=== PATIENT | female | born 1940 | race Hispanic/Latino ===

== ENCOUNTER → 2017-09-14 | Outpatient (CLI) | payer MEDICARE ==
[~2017-09-14] MED LIST: ASPI-1197 PO; ATOR20TA65 PO; HYDR25TA PO; LISI40TA4 PO; NAPR-1192 PO
== END | disposition home or self-care (01) ==
LOC: RAH 13:38
PROVIDERS: ATTEND Internal Medicine
DX: R51 Headache (principal); I10 Essential (primary) hypertension; E78.00 Pure hypercholesterolemia, unspecified; Z87.828 Personal history of other (healed) physical injury and trauma
CPT/HCPCS: 70450

== ENCOUNTER 2018-12-12 12:37 | Inpatient (IN) | payer MEDICARE ==
[~2018-12-12] VITALS: Ht 152.4 cm; Wt 72.6 kg
[2018-12-12 13:55] LABS: BASOPHILS % (AUTO) 0.3 % (0.0-5.0); EOSINOPHILS % (AUTO) 0.8 % (0.0-8.0); LYMPHOCYTES % (AUTO) 30.2 % (21.0-51.0); MEAN CORPUSCULAR HEMOGLOBIN 33.2 pg (27.0-33.0); MEAN CORPUSCULAR HGB CONC 34.6 g/dL (32.0-36.0); MEAN CORPUSCULAR VOLUME 96.1 fL (79-99); MONOCYTES % (AUTO) 6.3 % (3.0-13.0); NEUTROPHILS % (AUTO) 62.4 % (40.0-77.0); PLATELET COUNT (AUTO) 264 K/uL (130-400); RED BLOOD CELL COUNT(AUTO) 3.85 MIL/uL (4.00-5.50); RED CELL DISTRIBUTION WIDTH 13.4 % (11.0-15.5); WHITE BLOOD COUNT (AUTO) 7.3 K/uL (4.8-10.8)
[2018-12-12 14:04] LABS: CREATININE 0.8 mg/dL (0.5-1.5); POTASSIUM 3.1 mmol/L (3.5-5.1)
[2018-12-12] MEDS ORDERED: IOHEXOL-350 75 ML VIAL IV ONE (14:04)
[2018-12-12 14:06] LABS: ALBUMIN 3.8 g/dL (3.5-5.0); BILIRUBIN,TOTAL 0.5 mg/dL (0.2-1.0); TOTAL PROTEIN, SERUM 7.3 g/dL (6.0-8.3)
[2018-12-12 14:08] LABS: INR 1.02 (0.85-1.15); PARTIAL THROMBOPLASTIN TIME 26.6 SEC (26.3-35.5); PROTHROMBIN TIME 10.7 SEC (9.6-11.6)
[2018-12-12] MEDS ORDERED: ASPIRIN 325 MG TABLET ONE (16:55)
[2018-12-12] MEDS ORDERED: ONDANSETRON HCL 4 MG/2 ML VIAL IV PRN (18:15)
[2018-12-12] MEDS ORDERED: LACTULOSE 20 GM/30 ML UDCUP PO PRN (18:15)
[2018-12-12] MEDS ORDERED: ACETAMINOPHEN 325 MG TAB PO PRN (18:15)
[2018-12-12] MEDS ORDERED: HYDROCODONE/ACETAMINOPHEN 5/325 MG TAB PO PRN (18:15)
[2018-12-12] MEDS ORDERED: HYDRALAZINE HCL 20 MG/ML VIAL ONE (21:57)
[2018-12-13 00:35] VITALS: BP 175/70
[2018-12-13 00:39] LABS: APPEARANCE,URINE Clear (CLEAR); BILIRUBIN,URINE Negative (NEGATIVE); COLOR,URINE Yellow (YELLOW); GLUCOSE, URINE (UA) Negative (NEGATIVE); KETONES,URINE Negative (NEGATIVE); LEUKOCYTE ESTERASE ,URINE Negative (NEGATIVE); NITRATE,URINE Positive (NEGATIVE); OCCULT BLOOD,URINE Negative (NEGATIVE); PROTEIN,URINE Negative (NEGATIVE)
[2018-12-13 00:55] LABS: AMPHET/METH SCREEN,URINE NEGATIVE (NEGATIVE); BARBITURATE SCREEN, URINE NEGATIVE (NEGATIVE); BENZODIAZEPINES SCREEN,URINE NEGATIVE (NEGATIVE); CANNABINOID SCREEN,URINE NEGATIVE (NEGATIVE); COCAINE SCREEN,URINE NEGATIVE (NEGATIVE); OPIATE SCREEN,URINE NEGATIVE (NEGATIVE); PHENCYCLIDINE SCREEN,URINE NEGATIVE (NEGATIVE)
[2018-12-13 01:01] LABS: BACTERIA,URINE Many /HPF (None Seen); RBC,URINE 0-1 /HPF (0-1); SQUAMOUS EPITHELIAL CELL,UR 0-2 /HPF (0-2)
[2018-12-13] MEDS ORDERED: MECL-111 PO (01:33)
[2018-12-13] MEDS ORDERED: MELA3TAB66 PO (01:33)
[2018-12-13] MEDS ORDERED: OMEP-50 PO (01:33)
[2018-12-13 04:00] VITALS: BP 131/71
[2018-12-13 04:29] LABS: BASOPHILS % (AUTO) 0.4 % (0.0-5.0); EOSINOPHILS % (AUTO) 1.9 % (0.0-8.0); HEMATOCRIT 36.7 % (36-48); LYMPHOCYTES % (AUTO) 35.6 % (21.0-51.0); MEAN CORPUSCULAR HEMOGLOBIN 33.2 pg (27.0-33.0); MEAN CORPUSCULAR HGB CONC 34.7 g/dL (32.0-36.0); MEAN CORPUSCULAR VOLUME 95.8 fL (79-99); MONOCYTES % (AUTO) 7.6 % (3.0-13.0); NEUTROPHILS % (AUTO) 54.5 % (40.0-77.0); PLATELET COUNT (AUTO) 233 K/uL (130-400); RED BLOOD CELL COUNT(AUTO) 3.83 MIL/uL (4.00-5.50); RED CELL DISTRIBUTION WIDTH 13.4 % (11.0-15.5)
[2018-12-13 04:49] LABS: CREATININE 0.8 mg/dL (0.5-1.5); POTASSIUM 3.1 mmol/L (3.5-5.1)
[2018-12-13 07:30] VITALS: BP 152/74
[2018-12-13] MEDS ORDERED: ASPIRIN 81MG TAB.CHEW PO SCH (09:00)
--- NOTE | 2018-12-13 10:00 | NUR ---
COGNITIVE-LINGUISTIC EVAL COMPLETED. PT AT BASELINE AT THIS TIME. Addendum: 12/14/18 at 0721 by REZA TUCKER, SPT ST Amended: Links added.
--- NOTE | 2018-12-13 10:15 | NUR ---
DYSPHAGIA EVAL COMPLETED. -S/S OF ASPIRATION. RECOMMEND REGULAR TEXTURE, THIN LIQUIDS; PILLS WHOLE WITH LIQUIDS. Addendum: 12/14/18 at 0725 by REZA TUCKER, [facility] Amended: Links added.
[2018-12-13] MEDS ORDERED: ASPIRIN 325 MG TABLET ONE (10:45)
[2018-12-13 11:00] VITALS: BP 185/86
[2018-12-13] MEDS: FAMOTIDINE 20MG TAB 20 MG TAB PO SCH (11:04)
[2018-12-13] MEDS: ENOXAPARIN SODIUM 30 MG/0.3 ML SQ SCH (11:06)
[2018-12-13] MEDS: ASPIRIN 325MG EC TAB 325 MG TABLET.DR PO SCH (11:08)
[2018-12-13] MEDS ORDERED: Melatonin 3 MG PO PRN (14:15)
[2018-12-13] MEDS ORDERED: HYDRALAZINE HCL 20 MG/ML VIAL IV PRN (14:30)
[2018-12-13 16:00] VITALS: BP 160/62
--- NOTE | 2018-12-13 16:00 | NUR ---
INITIAL MET W PATIENT AND DAUGHTER AT BEDSIDE- PT LIVES W SPOUSE, WHO IS FRAIL, DAUGHTER SPLIT PROVIDER SERVICE FOR PATIENT, HOME IS SAFE AND ACCESSIBLE, PT HAS NAVA SINGLETON, DCP IS HOME Addendum: 12/15/18 at 0941 by KAMERON CABAN RN Amended: Links added.
[2018-12-13] MEDS ORDERED: POTASSIUM CHLORIDE 20MEQ/100ML 100 ML IV PRN (19:00)
[2018-12-13] MEDS ORDERED: POTASSIUM CHLORIDE 20 MEQ ERTAB PO PRN (19:00)
[2018-12-13] MEDS ORDERED: LIDOCAINE HCL-MPF 1% 2ML VIAL IV PRN (19:00)
[2018-12-13] MEDS ORDERED: POTASSIUM CHLORIDE 20 MEQ ERTAB PO ONE (19:24)
[2018-12-13 20:00] VITALS: BP 167/74
[2018-12-13] MEDS: LISINOPRIL 40 MG TABLET PO SCH (20:12)
[2018-12-14] VITALS: BP 144/70
[2018-12-14] MEDS: POTASSIUM CHLORIDE 10% ELIXIR 20 MEQ/15 ML UDCUP PO PRN ×2 (00:41→04:08)
[2018-12-14 04:00] VITALS: BP 104/54
[2018-12-14 07:43] VITALS: BP 111/58
[2018-12-14] MEDS: ENOXAPARIN SODIUM 30 MG/0.3 ML SQ SCH (08:44)
[2018-12-14] MEDS: FAMOTIDINE 20MG TAB 20 MG TAB PO SCH (08:44)
[2018-12-14] MEDS: HYDROCHLOROTHIAZIDE 25 MG TABLET PO SCH (08:44)
[2018-12-14] MEDS: ASPIRIN 325MG EC TAB 325 MG TABLET.DR PO SCH (08:44)
[2018-12-14 11:00] VITALS: BP_SYST 127; BP_SYST 133; BP_DIAS 58; BP_DIAS 78
[2018-12-14 16:00] VITALS: BP 147/71
[2018-12-14 19:30] VITALS: BP 150/74
[2018-12-14] MEDS: LISINOPRIL 40 MG TABLET PO SCH (21:07)
[2018-12-15 00:20] VITALS: BP 137/61
[2018-12-15 03:35] VITALS: BP 141/66
[2018-12-15 07:30] VITALS: BP 188/79
[2018-12-15] MEDS: HYDROCHLOROTHIAZIDE 25 MG TABLET PO SCH (09:19)
[2018-12-15] MEDS: ASPIRIN 325MG EC TAB 325 MG TABLET.DR PO SCH (09:19)
[2018-12-15] MEDS: FAMOTIDINE 20MG TAB 20 MG TAB PO SCH (09:20)
[2018-12-15] MEDS: ENOXAPARIN SODIUM 30 MG/0.3 ML SQ SCH (09:20)
[2018-12-15 11:00] VITALS: BP 136/61
[2018-12-15] MEDS ORDERED: ATOR20TA65 PO (11:53)
[2018-12-15] MEDS ORDERED: ASPI-1197 PO (11:53)
== END 2018-12-15 15:40 | disposition home or self-care (01) | DRG 69 ==
LOC: EDH 12:37 → EDHIP 18:08 → 4CH 23:48
PROVIDERS: ADMIT Internal Medicine; ATTEND Internal Medicine
DX: G45.9 Transient cerebral ischemic attack, unspecified (principal); I69.354 Hemiplegia and hemiparesis following cerebral infarction affecting left non-dominant side; I10 Essential (primary) hypertension; E78.5 Hyperlipidemia, unspecified; I25.10 Atherosclerotic heart disease of native coronary artery without angina pectoris; E86.0 Dehydration; K59.00 Constipation, unspecified; Z82.49 Family history of ischemic heart disease and other diseases of the circulatory system; I08.0 Rheumatic disorders of both mitral and aortic valves; R26.2 Difficulty in walking, not elsewhere classified
CPT/HCPCS: 36415; 70450; 70496; 70498; 70551; 71045; 80048; 80053; 80305; 81001; 82550; 82948; 83721; 84132; 84484; 85025; 85610; 85730; 92522; 92610; 93005; 93306; 93880; 97039; G0378; J0360; J1650; J2405; Q9967

== ENCOUNTER → 2019-02-23 | Outpatient (CLI) | payer MEDICARE ==
[~2019-02-23] VITALS: Ht 157.5 cm; Wt 79.4 kg
[~2019-02-23] MED LIST changes: +MECL-111 PO; +MELA3TAB66 PO
[2019-02-23 08:30] VITALS: BP 215/84
[2019-02-23 09:39] LABS: APPEARANCE,URINE Clear (CLEAR); BASOPHILS % (AUTO) 0.6 % (0.0-5.0); BILIRUBIN,URINE Negative (NEGATIVE); COLOR,URINE Yellow (YELLOW); EOSINOPHILS % (AUTO) 1.8 % (0.0-8.0); GLUCOSE, URINE (UA) Negative (NEGATIVE); HEMATOCRIT 38.3 % (36-48); KETONES,URINE Negative (NEGATIVE); LEUKOCYTE ESTERASE ,URINE Trace (NEGATIVE); LYMPHOCYTES % (AUTO) 33.8 % (21.0-51.0); MEAN CORPUSCULAR HEMOGLOBIN 32.1 pg (27.0-33.0); MEAN CORPUSCULAR HGB CONC 33.4 g/dL (32.0-36.0); MONOCYTES % (AUTO) 7.4 % (3.0-13.0); NEUTROPHILS % (AUTO) 56.3 % (40.0-77.0); NITRATE,URINE Positive (NEGATIVE); OCCULT BLOOD,URINE Negative (NEGATIVE); PH,URINE 6.5 (5.0-8.0); PLATELET COUNT (AUTO) 250 K/uL (130-400); PROTEIN,URINE Negative (NEGATIVE); RED BLOOD CELL COUNT(AUTO) 3.99 MIL/uL (4.00-5.50); RED CELL DISTRIBUTION WIDTH 13.2 % (11.0-15.5); WHITE BLOOD COUNT (AUTO) 7.1 K/uL (4.8-10.8)
[2019-02-23 09:44] LABS: RBC,URINE 0-1 /HPF (0-1); WBC,URINE 0-1 /HPF (0-1)
[2019-02-23 09:45] LABS: BACTERIA,URINE Many /HPF (None Seen); SQUAMOUS EPITHELIAL CELL,UR Few /HPF (0-2)
[2019-02-23 09:52] LABS: CREATININE 0.9 mg/dL (0.5-1.5); POTASSIUM 3.5 mmol/L (3.5-5.1)
[2019-02-23 09:55] LABS: INR 1.02 (0.85-1.15); PARTIAL THROMBOPLASTIN TIME 27.6 SEC (26.3-35.5); PROTHROMBIN TIME 10.7 SEC (9.6-11.6)
[2019-02-23 11:30] VITALS: BP 165/84
== END ==
LOC: EDSTATUS 08:00 → DAH 10:00
PROVIDERS: ATTEND Internal Medicine Cardiovascular Disease
DX: Z01.818 Encounter for other preprocedural examination (principal); I25.10 Atherosclerotic heart disease of native coronary artery without angina pectoris; G45.9 Transient cerebral ischemic attack, unspecified
CPT/HCPCS: 36415; 71045; 80048; 81001; 85025; 85610; 85730; 93005

== ENCOUNTER 2019-04-07 07:37 | Observation (INO) | payer MEDICARE ==
[2019-04-05 13:01] LABS: BASOPHILS % (AUTO) 0.4 % (0.0-5.0); EOSINOPHILS % (AUTO) 1.7 % (0.0-8.0); HEMATOCRIT 39.8 % (36-48); LYMPHOCYTES % (AUTO) 32.7 % (21.0-51.0); MEAN CORPUSCULAR HEMOGLOBIN 30.9 pg (27.0-33.0); MEAN CORPUSCULAR HGB CONC 32.2 g/dL (32.0-36.0); MEAN CORPUSCULAR VOLUME 96.1 fL (79-99); MONOCYTES % (AUTO) 7.3 % (3.0-13.0); NEUTROPHILS % (AUTO) 57.6 % (40.0-77.0); PLATELET COUNT (AUTO) 258 K/uL (130-400); RED BLOOD CELL COUNT(AUTO) 4.14 MIL/uL (4.00-5.50); RED CELL DISTRIBUTION WIDTH 13.2 % (11.0-15.5); WHITE BLOOD COUNT (AUTO) 7.7 K/uL (4.8-10.8)
[2019-04-05 13:12] LABS: APPEARANCE,URINE Clear (CLEAR); BILIRUBIN,URINE Negative (NEGATIVE); COLOR,URINE Yellow (YELLOW); GLUCOSE, URINE (UA) Negative (NEGATIVE); KETONES,URINE Negative (NEGATIVE); LEUKOCYTE ESTERASE ,URINE Trace (NEGATIVE); NITRATE,URINE Negative (NEGATIVE); OCCULT BLOOD,URINE Negative (NEGATIVE); PH,URINE 5.5 (5.0-8.0); PROTEIN,URINE Negative (NEGATIVE); UROBILINOGEN,URINE 0.2 mg/dL (0.2-1.0)
[2019-04-05 13:21] LABS: INR 1.02 (0.85-1.15); PARTIAL THROMBOPLASTIN TIME 28.1 SEC (26.3-35.5); PROTHROMBIN TIME 10.7 SEC (9.6-11.6)
[2019-04-05 13:22] LABS: BACTERIA,URINE Few /HPF (None Seen); RBC,URINE 0-1 /HPF (0-1)
[2019-04-05 13:23] LABS: SQUAMOUS EPITHELIAL CELL,UR Few /HPF (0-2)
[2019-04-05 13:34] LABS: CREATININE 0.9 mg/dL (0.5-1.5); POTASSIUM 3.6 mmol/L (3.5-5.1)
[2019-04-05 14:17] VITALS: BP 190/80
[2019-04-07] VITALS (11 sets, daily range): BP systolic 110–172; BP diastolic 43–72
[~2019-04-07] VITALS: Ht 157.5 cm; Wt 78.5 kg
[~2019-04-07 07:37] MED LIST changes: +AEC81 PO; -ASPI-1197 PO; -ATOR20TA65 PO; -MECL-111 PO; +MECL-160 PO; -MELA3TAB66 PO
--- NOTE | 2019-04-07 07:45 | NUR ---
PATIENT ARRIVED TO DAY PATIENT ACCOMPANIED BY DAUGHTER (KEATON). PATIENT AAOX3, RESPIRATIONS UNLABORED, VITAL SIGNS STABLE, DENIES ANY PAIN AT THIS TIME. PROCEDURE VERIFIED WITH PATIENT AND DAUGHTER, HOSPITAL ROUTINE EXPLAINED. BOTH PATIENT AND DAUGHTER VERBALIZED UNDERSTANDING.
[2019-04-07] MEDS ORDERED: ATOR20TA65 PO (08:59)
[2019-04-07] MEDS ORDERED: SODIUM CHLORIDE 0.9% 1000ML 1,000 ML IV ONE (10:33)
--- NOTE | 2019-04-07 11:00 | NUR ---
PATIENT TRANSFERRED TO STRIP CUTTER VIA BED BY JEF BOOTHE. PATIENT FAMILY MEMBERS WAITING IN ROOM.
[2019-04-07] MEDS ORDERED: LIDOCAINE HCL 2% VISCOUS 15 ML UDCUP ONE (11:21)
[2019-04-07] MEDS ORDERED: FENTANYL CITRATE PF 50 MCG/1 ML 2ML VIAL ONE (11:57)
[2019-04-07] MEDS ORDERED: ADENOSINE 90MG/30ML VIAL IV ONE (12:21)
[2019-04-07] MEDS ORDERED: IOHEXOL-350 50ML VIAL IV ONE ×2 (12:48→13:19)
[2019-04-07] MEDS ORDERED: LIDOCAINE HCL 2% 20ML ONE ×2 (13:06→13:19)
[2019-04-07] MEDS ORDERED: BUPIVACAINE/PF 0.25% 30ML VIAL IJ ONE (13:17)
[2019-04-07] MEDS ORDERED: IOHEXOL 350 MG/ML 100ML INFUS..BTL IV ONE (13:19)
[2019-04-07] MEDS ORDERED: HEPARIN SODIUM 1000UNIT/ML 10ML VIAL ONE (13:19)
[2019-04-07] MEDS ORDERED: SODIUM BICARB 50MEQ 50ML VIAL ONE (13:19)
[2019-04-07] MEDS ORDERED: HYDRALAZINE HCL 20 MG/ML VIAL ONE (13:25)
[2019-04-07] MEDS ORDERED: LABETALOL HCL 5 MG/ML 20ML VIAL IV ONE (13:34)
[2019-04-07] MEDS ORDERED: CEFAZOLIN SODIUM 1 GM VIAL ONE ×2 (13:38→13:42)
[2019-04-07] MEDS ORDERED: LIDOCAINE HCL 1% MDV 50ML VIAL ONE (13:41)
[2019-04-07] MEDS ORDERED: CLOPIDOGREL BISULFATE 300 MG TAB ONE (13:53)
[2019-04-07] MEDS ORDERED: ASPIRIN 81MG TAB.CHEW ONE (13:53)
[2019-04-07] MEDS ORDERED: NOREPINEPHRINE BITARTRATE 1 MG/1 ML ML IV ONE (13:57)
[2019-04-07] MEDS ORDERED: ACETAMINOPHEN-CODEINE 300/30MG TAB PO PRN (14:15)
[2019-04-07] MEDS ORDERED: MECLIZINE HCL 25 MG TABLET PO PRN (14:15)
[2019-04-07 14:30] LABS: HEMATOCRIT 35.1 % (36-48)
--- NOTE | 2019-04-07 14:50 | NUR ---
PATIENT RETURNED TO COLD ROLLING MACHINE SETTER VIA BED BY JEF TAVARES. PATIENT AAOX3, RESPIRATIONS UNLABORED, VITAL SIGNS STABLE. PRESSURE DRESSING TO RIGHT GROIN IS DRY/INTACT. BRUISING NOTED TO LEFT PUBIC AREA. AREA IS SOFT/NONTENDER. DRESSING TO LEFT UPPER CHEST WALL IS DRY/INTACT. AREA IS SOFT AND NONTENDER. PATIENT DENIES ANY PAIN AT THIS TIME. PATIENT FAMILY AT BEDSIDE.
--- NOTE | 2019-04-07 15:15 | NUR ---
REPORT GIVEN TO SUSHANT LEUNG RN USING SBAR AT BEDSIDE. DRESSING TO LEFT UPPER CHEST WALL IS DRY/INTACT. NO HEMATOMA OR TENDERNESS. PRESSURE DRESSING TO RIGHT GROIN IS DRY/INTACT, AREA SOFT/NONTENDER. BRUISING NOTED TO PUBIC AREA.
--- NOTE | 2019-04-07 15:45 | NUR ---
REPORT CALLED TO JEF ANTUNEZ. REPORT GIVEN USING SBAR, ALL QUESTIONS AND CONCERNS ADDRESSED. PATIENT TRANSPORTED TO ROOM 203 BY JEF CAPUTO.
--- NOTE | 2019-04-07 16:15 | NUR ---
STATUS PT RECEIVED FORM DAYPT VIA BED, S/P WILL, LHC W/STENT, & LOOP RECORDER DEVICE. LT LOWER CHEST DSG FOR LOOP RECORDER, DRY & INTACT. NO DRAINAGE, NO BLEEDING NOTED. LHC W/STENT, RT GROIN DSTAT & PRESSURE DSG. BRUISING TO GROIN PRESENT. (+) STRONG BILATERAL PEDAL PULSES. BLE PINK & WARM TO TOUCH. PT REMINDED TO MAINTAIN BEDREST X 8 HRS. DENIES INCISIONAL PAIN. A/O X 3. SPA SPEAKING. NO SOB. NO DISTRESS NOTED. O2 NC @ 2L. 0.9% NACL INFUSING @ 100 ML/HR. FAMILY @ BEDSIDE. ORIENTED TO RM. INSTRUCTED TO CALL FOR ASSISTANCE. CALL JEMMA W/IN REACH.
[2019-04-07] MEDS ORDERED: HYDRALAZINE HCL 20 MG/ML VIAL IV PRN (18:15)
[2019-04-07] MEDS ORDERED: ATORVASTATIN CALCIUM 20 MG TABLET PO SCH (21:00)
[2019-04-07] MEDS ORDERED: LISINOPRIL 40 MG TABLET PO SCH (21:00)
[2019-04-08 03:00] VITALS: BP 149/55
[2019-04-08 04:26] LABS: HEMATOCRIT 33.5 % (36-48); MEAN CORPUSCULAR HEMOGLOBIN 31.8 pg (27.0-33.0); MEAN CORPUSCULAR HGB CONC 33.7 g/dL (32.0-36.0); MEAN CORPUSCULAR VOLUME 94.4 fL (79-99); PLATELET COUNT (AUTO) 218 K/uL (130-400); RED BLOOD CELL COUNT(AUTO) 3.55 MIL/uL (4.00-5.50); RED CELL DISTRIBUTION WIDTH 13.4 % (11.0-15.5); WHITE BLOOD COUNT (AUTO) 9.5 K/uL (4.8-10.8)
[2019-04-08 04:41] LABS: CREATININE 0.8 mg/dL (0.5-1.5); POTASSIUM 3.2 mmol/L (3.5-5.1)
--- NOTE | 2019-04-08 06:28 | NUR ---
hospitalist paged for k level md educational audiologist paged for k level, awaiting call back
--- NOTE | 2019-04-08 06:44 | NUR ---
page returned hypokalemia protocol ordered
[2019-04-08] MEDS ORDERED: POTASSIUM CHLORIDE 20MEQ/100ML 100 ML IV PRN (06:45)
[2019-04-08] MEDS ORDERED: POTASSIUM CHLORIDE 10% ELIXIR 20 MEQ/15 ML UDCUP PO PRN (06:45)
[2019-04-08] MEDS ORDERED: LIDOCAINE HCL-MPF 1% 2ML VIAL IV PRN (06:45)
[2019-04-08] MEDS ORDERED: POTASSIUM CHLORIDE 20 MEQ ERTAB PO PRN (06:45)
[2019-04-08 07:37] VITALS: BP 129/49
--- NOTE | 2019-04-08 07:45 | NUR ---
AM ASSESSMENT PT LAYING IN BED, HOB ELEVATED 30 DEGREES, WATCHING TV. FAMILY @ BEDSIDE. A/O X 3. NO SOB. NO DISTRESS NOTED. DENIES CHEST PAIN OR DISCOMFORT. DENIES PALPITATIONS. DENIES INCISIONAL PAIN. TELE: SR. LT LOWER CHEST DSG, DRY & INTACT. NO DRAINAGE NOTED. RT GROIN PRESSURE DSG REMOVED. DSTAT IN PLACE. ECCHYMOSIS SURROUNDING PUNCTURE SITED. NO BLEEDING, NO HEMATOMA NOTED. (+) STRONG BILATERAL PEDAL PULSES. BLE PINK & WARM TO TOUCH. DENIES N/V AND/OR DIARRHEA. UP W/ASSISTANCE. INSTRUCTED TO CALL FOR ASSISTANCE. CALL JEMMA W/IN REACH.
[2019-04-08] MEDS: SODIUM CHLORIDE 0.9% 1000ML 1,000 ML IV SCH ×2 (08:06→08:07)
[2019-04-08] MEDS ORDERED: CLOPIDOGREL BISULFATE 75 MG TAB PO SCH (09:00)
[2019-04-08] MEDS ORDERED: METOPROLOL TARTRATE 25 MG TAB PO SCH (09:00)
[2019-04-08] MEDS ORDERED: PANTOPRAZOLE SODIUM 40 MG TABLET.DR PO SCH (09:00)
[2019-04-08] MEDS ORDERED: ASPIRIN 81 MG EC TAB PO SCH (09:00)
[2019-04-08] MEDS ORDERED: HYDROCHLOROTHIAZIDE 25 MG TABLET PO SCH (09:00)
--- NOTE | 2019-04-08 10:25 | NUR ---
MD NOTIFICATION CALL RECEIVED FROM DR MOORE. SPOKE W/DR DEL SAUCEDO. PER DR DEL SAUCEDO PT IS CLEARED FOR DISCHARGE HOME TODAY FROM [facility].
--- NOTE | 2019-04-08 11:25 | NUR ---
DISCHARGE VERBAL & WRITTEN DISCHARGE INSTRUCTIONS REVIEWED & GIVEN TO PT & DAUGHTER IN [place]. QUESTIONS ENCOURAGED & CLARIFIED. PROPER CARE & ACTIVITY AFTER LHC W/STENT, WILL, & LOOP RECORDER IMPLANT REVIEWED & REINFORCED. NEW PRESCRIBED & DC'D MEDICATIONS REVIEWED. PRESCRIPTION GIVEN TO PT. SIGNED COPY PLACED IN CHART. RT GROIN DSTAT REMOVED. PUNCTURE SITE APPROX, NO BLEEDING, NO HEMATOMA NOTED. GAUZE & OPSITE APPLIED. TELE MARIBETH REMOVED. IV DC'D. PT & FAMILY TO GATHER PERSONAL BELONGINGS. WILL NOTIFY STAFF WHEN READY TO BE TAKEN TO PRIVATE VEHICLE.
[2019-04-08 11:49] VITALS: BP 134/58
--- NOTE | 2019-04-08 12:10 | NUR ---
DISCHARGE PT TAKEN TO PRIVATE VEHICLE VIA WC BY Vick ALMAZAN PCP, ACCOMPANIED BY FAMILY. NO DISTRESS NOTED.
== END 2019-04-08 12:09 | disposition home or self-care (01) ==
LOC: DAH 07:37 → DAHIP 07:38 → 2AH 15:43
PROVIDERS: ADMIT Internal Medicine; ATTEND Internal Medicine
DX: G45.9 Transient cerebral ischemic attack, unspecified (principal); I63.9 Cerebral infarction, unspecified; R07.89 Other chest pain; I10 Essential (primary) hypertension; E78.5 Hyperlipidemia, unspecified; I25.119 Atherosclerotic heart disease of native coronary artery with unspecified angina pectoris; Z79.01 Long term (current) use of anticoagulants; Z79.82 Long term (current) use of aspirin; Z79.899 Other long term (current) drug therapy
CPT/HCPCS: 33285; 36415 ×3; 71045; 76705; 80048 ×2; 81001; 85014; 85018; 85025; 85027; 85610; 85730; 86850; 86900; 86901; 92921; 93005; 93313; 93458; 93571; A4215; A4216; A4221; A4222; A4223 ×3; A4344; A4606; A4663; C1725; C1760 ×2; C1764; C1769 ×2; C1876; C1887; C1894; C9600; G0378 ×18; J0153; J0360; J0690 ×2; J1644 ×2; J3010; J3490 ×7; J7030; Q9965; Q9967 ×3; 99156; 99157

== ENCOUNTER → 2019-07-14 | Outpatient (CLI) | payer MEDICARE ==
[~2019-07-14] MED LIST changes: +ATOR20TA65 PO; +IOHEXOL-350 50ML VIAL IV ONE; -NAPR-1192 PO
== END | disposition home or self-care (01) ==
LOC: RAH 09:30
PROVIDERS: ATTEND Family Medicine
DX: J18.9 Pneumonia, unspecified organism (principal); I51.7 Cardiomegaly; I25.10 Atherosclerotic heart disease of native coronary artery without angina pectoris
CPT/HCPCS: 71260; Q9967

== ENCOUNTER → 2020-01-31 | Outpatient (CLI) | payer MEDICARE ==
[~2020-01-31] MED LIST changes: -IOHEXOL-350 50ML VIAL IV ONE
== END | disposition home or self-care (01) ==
LOC: SHCH 09:49
PROVIDERS: ATTEND Internal Medicine Cardiovascular Disease
DX: I35.1 Nonrheumatic aortic (valve) insufficiency (principal)
CPT/HCPCS: 93306; 93356

== ENCOUNTER → 2020-08-29 | Outpatient (CLI) | payer MEDICARE ==
[~2020-08-29] MED LIST changes: -LISI40TA4 PO; +LISI40TA9 PO
== END | disposition home or self-care (01) ==
LOC: SHCH 09:44
PROVIDERS: ATTEND Internal Medicine Cardiovascular Disease
DX: R60.9 Edema, unspecified (principal)
CPT/HCPCS: 93970

== ENCOUNTER → 2021-04-23 | Outpatient (CLI) | payer MEDICARE | END | disposition home or self-care (01) | LOC: SHCH 11:15 | PROVIDERS: ATTEND Internal Medicine Cardiovascular Disease | DX: I11.9 Hypertensive heart disease without heart failure (principal); I35.8 Other nonrheumatic aortic valve disorders; E78.5 Hyperlipidemia, unspecified | CPT/HCPCS: 93306 ==

== ENCOUNTER → 2023-06-03 | Outpatient (CLI) | payer MEDICARE | END | disposition home or self-care (01) | LOC: SHCH 07:57 | PROVIDERS: ATTEND Internal Medicine Cardiovascular Disease | DX: I70.203 Unspecified atherosclerosis of native arteries of extremities, bilateral legs (principal); R06.00 Dyspnea, unspecified | CPT/HCPCS: 93306; 93925 ==

== ENCOUNTER → 2023-06-03 | Outpatient (CLI) | payer MEDICARE | END | disposition home or self-care (01) | LOC: SHCH 10:00 | PROVIDERS: ATTEND Internal Medicine Cardiovascular Disease | DX: I08.8 Other rheumatic multiple valve diseases (principal); R06.00 Dyspnea, unspecified | CPT/HCPCS: 93306 ==

== ENCOUNTER → 2023-07-12 | Outpatient (CLI) | payer MEDICARE ==
[~2023-07-12] MED LIST changes: -MECL-160 PO; +MECL-302 PO
[2023-07-12] MEDS: REGADENOSON 0.4 MG/5 ML PF SYG IVP ONE (14:07)
== END | disposition home or self-care (01) ==
LOC: SHCH 07-09 09:34
PROVIDERS: ATTEND Internal Medicine Cardiovascular Disease
DX: R06.00 Dyspnea, unspecified (principal); Z79.899 Other long term (current) drug therapy
CPT/HCPCS: 78452; 96374; 93017; J2785; A9500 ×2

== ENCOUNTER → 2023-07-28 | Outpatient (CLI) | payer MEDICARE ==
[2023-07-28 12:07] LABS: BASOPHILS # (AUTO) 0.03 K/uL (0.00-0.20); BASOPHILS % (AUTO) 0.4 % (0.0-5.0); EOSINOPHILS # (AUTO) 0.08 K/uL (0.00-0.70); HEMATOCRIT 40.5 % (36-48); IMMATURE GRANULOCYTE ABSOLUTE 0.03 K/uL (0-1); LYMPHOCYTES # (AUTO) 2.7 K/uL (1.0-4.8); MEAN CORPUSCULAR HEMOGLOBIN 31.9 pg (27.0-33.0); MEAN CORPUSCULAR HGB CONC 33.3 g/dL (32.0-36.0); MEAN CORPUSCULAR VOLUME 95.7 fL (79-99); MONOCYTES # (AUTO) 0.7 K/uL (0.1-1.0); MONOCYTES % (AUTO) 8.5 % (3.0-13.0); NEUTROPHILS # (AUTO) 4.4 K/uL (1.8-7.7); NEUTROPHILS % (AUTO) 55.7 % (40.0-77.0); PLATELET COUNT (AUTO) 283 K/uL (130-400); RED BLOOD CELL COUNT(AUTO) 4.23 MIL/uL (4.00-5.50); RED CELL DISTRIBUTION WIDTH 13.6 % (11.0-15.5); WHITE BLOOD COUNT (AUTO) 7.9 K/uL (4.8-10.8)
[2023-07-28 12:39] LABS: ALBUMIN 3.6 g/dL (3.5-5.0); BILIRUBIN,TOTAL 0.6 mg/dL (0.2-1.0); CREATININE 0.9 mg/dL (0.5-1.0); MAGNESIUM 1.7 mg/dL (1.80-2.40); POTASSIUM 3.9 mmol/L (3.5-5.1); TOTAL PROTEIN, SERUM 7.7 g/dL (6.0-8.3)
== END | disposition home or self-care (01) ==
LOC: LAB 10:55
PROVIDERS: ATTEND Physician Assistant
DX: I10 Essential (primary) hypertension (principal)
CPT/HCPCS: 36415; 80053; 83735; 83880; 85025

== ENCOUNTER 2023-09-13 08:51 | Day surgery (SDC) | payer MEDICARE ==
[2023-09-10 09:06] VITALS: BP 141/68; PULSE 70; RESP 18
[2023-09-10 09:07] LABS: BASOPHILS # (AUTO) 0.03 K/uL (0.00-0.20); BASOPHILS % (AUTO) 0.3 % (0.0-5.0); EOSINOPHILS # (AUTO) 0.09 K/uL (0.00-0.70); EOSINOPHILS % (AUTO) 0.9 % (0.0-8.0); HEMATOCRIT 41.8 % (36-48); IMMATURE GRANULOCYTE ABSOLUTE 0.02 K/uL (0-1); LYMPHOCYTES # (AUTO) 3.8 K/uL (1.0-4.8); LYMPHOCYTES % (AUTO) 39.2 % (21.0-51.0); MEAN CORPUSCULAR HEMOGLOBIN 32.8 pg (27.0-33.0); MEAN CORPUSCULAR VOLUME 96.5 fL (79-99); MONOCYTES # (AUTO) 0.7 K/uL (0.1-1.0); MONOCYTES % (AUTO) 7.1 % (3.0-13.0); NEUTROPHILS % (AUTO) 52.3 % (40.0-77.0); PLATELET COUNT (AUTO) 265 K/uL (130-400); RED BLOOD CELL COUNT(AUTO) 4.33 MIL/uL (4.00-5.50); WHITE BLOOD COUNT (AUTO) 9.6 K/uL (4.8-10.8)
[2023-09-10 09:17] LABS: INR 1.06 (0.85-1.15); PROTHROMBIN TIME 11.4 SEC (9.6-11.6)
[2023-09-10 09:18] LABS: CREATININE 1.2 mg/dL (0.5-1.0)
[2023-09-10 09:19] LABS: PARTIAL THROMBOPLASTIN TIME 26.8 SEC (26.3-35.5)
[2023-09-10 09:21] LABS: POTASSIUM 2.6 mmol/L (3.5-5.1)
[2023-09-10 09:49] LABS: B-TYPE NATRIURETIC PEPTIDE 75 pg/mL (0-100)
[~2023-09-13] VITALS: Ht 157.5 cm; Wt 81.1 kg
[2023-09-13] VITALS (8 sets, daily range): BP systolic 120–149; BP diastolic 53–72; PULSE 54–64; RESP 14–19
[~2023-09-13 08:51] MED LIST changes: +CLOP75TA32 PO; +DONE5TAB33 PO; +FURO20TA4 PO; +INVOK100TB PO; +LISI20TA24 PO; -LISI40TA9 PO; +METO-408 PO
[2023-09-13] MEDS ORDERED: NICARDIPINE 25MG INJ IV ONE (11:31)
[2023-09-13] MEDS ORDERED: MIDAZOLAM HCL 1 MG/ML 2ML VIAL ONE (11:31)
[2023-09-13] MEDS ORDERED: IOHEXOL 350 MG/ML 100ML INFUS..BTL IV ONE (11:31)
[2023-09-13] MEDS ORDERED: MEPERIDINE-PF 25 MG/ML SYG ONE (11:31)
[2023-09-13] MEDS ORDERED: HEPARIN 10,000 UNIT/10ML (1,000 UNIT/ML) VIAL ONE (11:31)
[2023-09-13] MEDS ORDERED: NITROGLYCERIN 50MG VIAL ONE (11:31)
[2023-09-13] MEDS ORDERED: LIDOCAINE HCL 400MG/20ML VIAL ONE (11:31)
[2023-09-13] MEDS ORDERED: 0.9%NACL 1000ML 1,000 ML IV SCH (12:30)
[2023-09-13] MEDS ORDERED: DEXTROSE 50%-WATER 50 ML DISP.SYRIN IV PRN (12:30)
[2023-09-13] MEDS ORDERED: INSULIN HUMULIN R 100 UNIT/ML 3ML SQ SCH (16:30)
== END 2023-09-13 16:07 | disposition home or self-care (01) ==
LOC: DAH 08:51
PROVIDERS: ATTEND Internal Medicine Cardiovascular Disease
DX: I25.118 Atherosclerotic heart disease of native coronary artery with other forms of angina pectoris (principal); I10 Essential (primary) hypertension; E78.5 Hyperlipidemia, unspecified; Z95.5 Presence of coronary angioplasty implant and graft; Z79.82 Long term (current) use of aspirin; Z86.73 Personal history of transient ischemic attack (TIA), and cerebral infarction without residual deficits; Z79.01 Long term (current) use of anticoagulants; Z79.899 Other long term (current) drug therapy
CPT/HCPCS: 93458; 82948; 36415; C1887; C1769 ×2; A4649; C1894; J3490 ×3; J1644 ×2; J2250; J2175; Q9967; A4215; A4222; A4221; A4663; A4216; A4606; Q9965; A4223 ×3; 71045; 80048; 83880; 85025; 85610; 85730; 93005; 96360; 96361; 99156; 99157